=== PATIENT | male | born 1980 | race Caucasian/White ===

== ENCOUNTER 2017-03-02 05:30 | Emergency (ER) | payer BC ==
[2017-03-02] MEDS ORDERED: NS 1,000 ML IV ONE ×2 (05:48)
[2017-03-02] MEDS ORDERED: KETOROLAC 15 MG/1 ML SDV IVP ONE (05:49)
[2017-03-02] MEDS ORDERED: ONDANSETRON 4 MG/2 ML VIAL ONE (05:50)
[2017-03-02] MEDS ORDERED: KETOROLAC 30 MG/1 ML SDV ONE (05:50)
[2017-03-02] MEDS ORDERED: LIDOCAINE 1% 120 MG in NS 100 ML IV ONE (05:54)
[2017-03-02] MEDS ORDERED: ONDANSETRON 4 MG/2 ML VIAL IVP ONE (05:56)
--- NOTE | 2017-03-02 05:58 | EDPHY ---
H & P Stated Complaint: R flank pain at 0400 with N and chills Time Seen by Provider: 03/02/17 05:48 HPI/ROS: HPI The patient presents with right-sided flank pain which began at 4:00 a.m. when he awoke to urinate. The pain is been constant ever since, achy in nature, severe, radiating forward to his right lower quadrant. He has no prior history of similar. He denies any hematuria. He feels nauseated though has not vomited.. REVIEW OF SYSTEMS Constitutional: No fever, no chills. Eyes: No discharge. ENT: No sore throat. Cardiovascular: No chest pain, no palpitations. Respiratory: No cough, no shortness of breath. Gastrointestinal: See HPI Genitourinary: No hematuria. Musculoskeletal: No back pain. Skin: No rashes. Neurological: No headache. PMHx: Healthy Soc Hx: Visiting [place] from 2 weeks from [place] PHYSICAL General Appearance: Alert, uncomfortable appearing Eyes: Pupils equal and round no pallor or injection ENT, Mouth: Mucous membranes moist Respiratory: There are no retractions, lungs are clear to auscultation Cardiovascular: Regular rate and rhythm Gastrointestinal: Abdomen is soft and non-tender, no masses, bowel sounds normal There is right-sided flank tenderness Neurological: A&O, moves all extremities Skin: Warm and dry, no rashes Musculoskeletal: Neck is supple non tender Extremities: symmetrical, full range of motion Psychiatric: Patient is oriented X 3, there is no agitation Source: Patient Exam Limitations: No limitations - Personal History Current Tetanus/Diphtheria Vaccine: Yes - Medical/Surgical History Hx Asthma: No Hx Chronic Respiratory Disease: No Hx Diabetes: No Hx Cardiac Disease: No Hx Renal Disease: No Hx Cirrhosis: No Hx Alcoholism: No Hx HIV/AIDS: No Hx Splenectomy or Spleen Trauma: No Other PMH: none - Social History Smoking Status: Never smoked Constitutional: Initial Vital Signs Temperature (C) 36.4 C 03/02/17 05:33 Heart Rate 55 L 03/02/17 05:33 Respiratory Rate 18 03/02/17 05:33 Blood Pressure 148/96 H 03/02/17 05:33 O2 Sat (%) 95 03/02/17 05:33 O2 Delivery Mode Room Air Allergies/Adverse Reactions: No Known Allergies Allergy (Unverified 03/02/17 05:33) Home Medications: Medication Instructions Recorded Ondansetron Odt [Zofran Odt 4 mg 4 mg PO Q4 PRN #10 tab 03/02/17 (*)] morphINE IR [morphINE IR 15 mg (*)] 15 mg PO Q4H PRN #10 tab 03/02/17 Medical Decision Making - Diagnostics Imaging Results: CT abdomen pelvis shows 3 mm kidney stone in the distal ureter on the right with mild hydronephrosis, discussed with Dr. Kirkland of Radiology. Imaging: Discussed imaging studies w/ call center receptionist Radiologist Differential Diagnosis: This is a 37-year-old male who presents with right-sided flank pain for the last several hours associated with nausea. Differential diagnosis includes ureterolithiasis, pyelonephritis, less likely AAA. In the emergency room, the patient was given lidocaine, Toradol, Zofran, IV fluids with improvement in his symptoms. Labs were checked and were normal except for hematuria. CT scan revealed a 3 mm stone in the distal right ureter. The patient was reassessed and his pain had improved. I have discussed the diagnosis and treatment plan with him. He will be discharged from the emergency room in good condition. - Data Points Laboratory Results: Laboratory Results 03/02/17 05:48 03/02/17 05:48 03/02/17 03/02/17 03/02/17 05:48 05:48 05:37 WBC 6.14 10^3/uL 10^3/uL (3.80-9.50) RBC 4.72 10^6/uL 10^6/uL (4.40-6.38) Hgb 14.7 g/dL g/dL (13.7-17.5) Hct 41.9 % % (40.0-51.0) MCV 88.8 fL fL (81.5-99.8) MCH 31.1 pg pg (27.9-34.1) MCHC 35.1 g/dL g/dL (32.4-36.7) RDW 11.8 % % (11.5-15.2) Plt Count 248 10^3/uL 10^3/uL (150-400) MPV 10.2 fL fL (8.7-11.7) Neut % (Auto) 54.4 % % (39.3-74.2) Lymph % (Auto) 31.3 % % (15.0-45.0) [place] % (Auto) 8.0 % % (4.5-13.0) Eos % (Auto) 5.9 % % (0.6-7.6) Baso % (Auto) 0.2 % L % (0.3-1.7) Nucleat RBC Rel Count 0.0 % % (0.0-0.2) Absolute Neuts (auto) 3.35 10^3/uL 10^3/uL (1.70-6.50) Absolute Lymphs (auto) 1.92 10^3/uL 10^3/uL (1.00-3.00) Absolute Monos (auto) 0.49 10^3/uL 10^3/uL (0.30-0.80) Absolute Eos (auto) 0.36 10^3/uL 10^3/uL (0.03-0.40) Absolute Basos (auto) 0.01 10^3/uL L 10^3/uL (0.02-0.10) Absolute Nucleated RBC 0.00 10^3/uL 10^3/uL (0-0.01) Immature Gran % 0.2 % % (0.0-1.1) Immature Gran # 0.01 10^3/uL 10^3/uL (0.00-0.10) Sodium 143 mEq/L mEq/L (134-144) Potassium 3.8 mEq/L mEq/L (3.5-5.2) Chloride 105 mEq/L mEq/L (97-110) Carbon Dioxide 24 mEq/l mEq/l (22-31) Anion Gap 14 mEq/L mEq/L (8-16) BUN 22 mg/dL mg/dL (7-23) Creatinine 1.2 mg/dL mg/dL (0.7-1.3) Estimated GFR > 60 Glucose 115 mg/dL H mg/dL (70-100) Calcium 9.9 mg/dL mg/dL (8.5-10.4) Urine Color YELLOW Urine Appearance CLEAR Urine pH 6.0 (5.0-7.5) Ur Specific [place] 1.017 (1.002-1.030) Urine Protein NEGATIVE (NEGATIVE) Urine Ketones NEGATIVE (NEGATIVE) Urine Blood 1+ H (NEGATIVE) Urine Nitrate NEGATIVE (NEGATIVE) Urine Bilirubin NEGATIVE (NEGATIVE) Urine Urobilinogen NEGATIVE EU EU (0.2-1.0) Ur Leukocyte Esterase NEGATIVE (NEGATIVE) Urine RBC 25-50 /hpf H /hpf (0-3) Urine WBC 1-3 /hpf /hpf (0-3) Ur Epithelial Cells NONE SEEN /lpf /lpf (NONE-1+) Urine Mucus TRACE /lpf /lpf (NONE-1+) Urine Glucose NEGATIVE (NEGATIVE) Medications Given: Discontinued Medications Sodium Chloride (Ns) 1,000 mls @ 0 mls/hr IV ONCE ONE; Wide Open PRN Reason: Protocol Stop: 03/02/17 05:49 Last Admin: 03/02/17 05:55 Dose: 1,000 mls Sodium Chloride (Ns) 1,000 mls @ 0 mls/hr IV ONCE ONE; Wide Open PRN Reason: Protocol Stop: 03/02/17 05:49 Last Admin: 03/02/17 05:55 Dose: 1,000 mls Lidocaine HCl 120 mg/ Sodium (Chloride) 112 mls @ 600 mls/hr IV EDNOW ONE Stop: 03/02/17 06:05 Last Admin: 03/02/17 06:31 Dose: 112 mls Ketorolac Tromethamine (Toradol) 15 mg IVP EDNOW ONE Stop: 03/02/17 05:50 Last Admin: 03/02/17 05:54 Dose: 15 mg Ondansetron HCl (Zofran) 4 mg IVP EDNOW ONE Stop: 03/02/17 05:57 Last Admin: 03/02/17 05:56 Dose: 4 mg Departure - Departure Disposition: Home, Routine, Self-Care Clinical Impression: Ureterolithiasis Condition: Good Instructions: Renal Colic (ED) Additional Instructions: Please make sure to drink plenty of fluids. You should strain her urine. You can take the medicines as needed for pain and vomiting. However, you should take ibuprofen 400 mg and acetaminophen 650 mg every 6 hours for pain to begin with and then if the pain is severe you can take the stronger pain medication. Please follow-up with the urologist if you are not better in the next 1 week. Referrals: Kapil Gandara MD [Medical Doctor] - As per Instructions Prescriptions: morphINE IR [morphINE IR 15 mg (*)] 15 mg PO Q4H PRN #10 tab PRN Reason: Pain, Breakthrough Ondansetron Odt [Zofran Odt 4 mg (*)] 4 mg PO Q4 PRN #10 tab PRN Reason: Nausea/Vomiting, Can'T Take Po
[2017-03-02 06:10] LABS: % IMMATURE GRANULYOCYTES 0.2 % (0.0-1.1); ABSOLUTE IMMATURE GRANULOCYTES 0.01 10^3/uL (0.00-0.10); ADD DIFF? NO; ADD MORPH? NO; ADD SCAN? NO; ATYPICAL LYMPHOCYTE FLAG 10 (0-99); FRAGMENT RBC FLAG 0 (0-99); HEMATOCRIT 41.9 % (40.0-51.0); HEMOGLOBIN 14.7 g/dL (13.7-17.5); LEFT SHIFT FLG 0 (0-99); LIPEMIA HEMOLYSIS FLAG 90 (0-99); MEAN CELL HEMOGLOBIN 31.1 pg (27.9-34.1); MEAN CELL HEMOGLOBIN CONCENTR. 35.1 g/dL (32.4-36.7); MEAN CELL VOLUME 88.8 fL (81.5-99.8); MEAN PLATELET VOLUME 10.2 fL (8.7-11.7); PLATELET CLUMPS FLAG 0 (0-99); PLATELET COUNT 248 10^3/uL (150-400); RED BLOOD CELL COUNT 4.72 10^6/uL (4.40-6.38); RED CELL DISTRIBUTION WIDTH 11.8 % (11.5-15.2)
[2017-03-02 06:11] LABS: COLOR YELLOW; LEUKOCYTE ESTERASE,URINE NEGATIVE (NEGATIVE); NITRITE,URINE NEGATIVE (NEGATIVE)
[2017-03-02 06:21] LABS: ANION GAP 14 mEq/L (8-16); CALCIUM 9.9 mg/dL (8.5-10.4); CARBON DIOXIDE 24 mEq/l (22-31); CHLORIDE 105 mEq/L (97-110); CREATININE 1.2 mg/dL (0.7-1.3); GLOMERULAR FILTRATION RATE > 60; GLUCOSE 115 mg/dL (70-100); POTASSIUM 3.8 mEq/L (3.5-5.2); SODIUM 143 mEq/L (134-144)
[2017-03-02 06:21] LABS: MUCUS TRACE /lpf (NONE-1+); RBC,URINE 25-50 /hpf (0-3)
[2017-03-02 06:36] VITALS: O2SAT 98
[2017-03-02 08:02] VITALS: BP 145/81; PULSE 50; RESP 16; TEMP 98.1
== END 2017-03-02 08:24 | disposition home or self-care (01) ==
DX: N20.1 Calculus of ureter (principal); E86.9 Volume depletion, unspecified
CPT/HCPCS: 96374; J1885; J2405